=== PATIENT | female | born 1950 | race Caucasian/White ===

== ENCOUNTER → 2019-02-10 | Outpatient (CLI) | payer MEDICARE ==
[~2019-02-10] MED LIST: ALBU90OI INH; ASPI81EC PO; CEPH500 PO; CLARITIN10 MG PO; CRANBERRY PLUS1 EAC1 PO; FURO20 PO; GABA300 PO; GLUCOSAMINE CH PO; HYDR-86; HYDR-86 PO; LISI10 PO; LORA10 PO; LOSA50 PO; LOVA20 PO; Lo-Dose Aspirin81 MG PO; Micro-K8 MEQ PO; NAPR500ERA PO; OMEP20ER PO; Pyridium200 MG PO; SERT100 PO; TRAZ100 PO; VITAMIN D31000 UNIT PO; Ventolin/Prove6.7 GM INH
[2019-02-10 11:00] LABS: Hematocrit 27.8 % (33.0-51.0); Hemoglobin 9.4 g/dL (11.5-16.0); Mean Corpuscular HGB 32.2 pg (26.0-34.0); Mean Corpuscular HGB Conc 33.8 g/dL (31.5-36.5); Mean Corpuscular Volume 95 fL (80-100); Mean Platelet Volume 9.6 fL (9.1-12.4); Platelet Count 128 K/mm3 (150-400); RDW Coefficient Variation 15.4 % (11.7-14.2); RDW Standard Deviation 54.3 fL (35.1-46.3); Red Blood Cell Count 2.92 M/mm3 (3.80-5.20); White Blood Cell Count 6.77 K/mm3 (4.00-11.30)
[2019-02-10 11:11] LABS: Alanine Aminotransfer (ALT/SGP 15 U/L (12-78); Albumin, Blood 3.3 g/dL (3.4-5.0); Albumin/Globulin Ratio 0.9 (0.8-1.8); Alk Phos 75 U/L (40-126); Anion Gap 8 mmol/L (6-16); Aspartate Aminotrans (AST/SGOT 38 U/L (12-37); Bilirubin, Total 0.6 mg/dL (0.1-1.0); Blood Urea Nitrogen 20 mg/dL (8-24); Bun/Creatinine Ratio 20.2 (12.0-20.0); CO2, Blood 28 mmol/L (21-32); Calcium, Blood 9.3 mg/dL (8.5-10.1); Chloride, Blood 103 mmol/L (98-108); Creatinine, Blood 0.99 mg/dL (0.40-1.00); Globulin, Blood 3.6 g/dL (2.2-4.0); Glomerular Filtration Rate 55 (60-); Glucose, Blood 108 mg/dL (70-99); Potassium, Blood 3.7 mmol/L (3.5-5.5); Sodium, Blood 139 mmol/L (136-145); Total Protein, Blood 6.9 g/dL (6.4-8.2)
[2019-02-10 11:12] LABS: Troponin I <0.017 ng/mL (0.000-0.040)
[2019-02-10 12:56] LABS: BAND PERCENT MAN 1 % (0-8); BASOPHILS ABSOLUTE MAN 0.13 K/mm3 (0.00-0.23); BASOPHILS PERCENT MAN 2 % (0-2); EOSINOPHILS ABSOLUTE MAN 0.27 K/mm3 (0.00-0.68); EOSINOPHILS PERCENT MAN 4 % (0-6); LYMPHOCYTES ABSOLUTE MAN 0.88 K/mm3 (0.84-5.20); LYMPHOCYTES PERCENT MAN 13 % (21-46); MONOCYTES ABSOLUTE MAN 1.21 K/mm3 (0.16-1.47); MONOCYTES PERCENT MAN 18 % (4-13); NEUTROPHILS ABSOLUTE MAN 4.26 K/mm3 (1.96-9.15); SEG NEUTROPHILS PERCENT MAN 62 % (41-73); TOTAL CELLS COUNTED 100
[2019-02-10 15:56] LABS: Percent Saturation 67.5 % (15.0-50.0)
[2019-02-11 13:38] LABS: IMMATURE RETIC FRACTION 9.3 % (2.3-16.0); RETIC HGB EQUIVALENT 37.2 pg (28.20-36.60); RETICULOCYTE ABSOLUTE 0.054 M/mm3 (0.0200-0.1100); RETICULOCYTE COUNT PERCENT 1.85 % (0.50-2.50)
== END | disposition home or self-care (01) ==
LOC: LAB EV 10:53 → LAB SHORT 10:53
PROVIDERS: Physician Assistant
DX: R07.9 Chest pain, unspecified (principal); D64.9 Anemia, unspecified
CPT/HCPCS: 80053; 83540; 83550; 83880; 84484; 85025; 85045; 85379

== ENCOUNTER → 2019-02-15 | Outpatient (CLI) | payer MEDICARE ==
[2019-02-19 14:16] LABS: Stool Occult Bld Immuno 1 Negative (NEGATIVE); Stool Occult Bld Immuno 2 Negative (NEGATIVE); Stool Occult Bld Immuno 3 Negative (NEGATIVE)
== END | disposition home or self-care (01) ==
LOC: LAB SHORT 10:30 → LAB 10:30 → LAB FUT 02-15 14:30
PROVIDERS: Nurse Practitioner
DX: D64.9 Anemia, unspecified (principal); R73.9 Hyperglycemia, unspecified
CPT/HCPCS: G0328

== ENCOUNTER 2019-04-03 08:52 | Emergency (ER) | payer MEDICARE ==
[~2019-04-03] VITALS: Ht 167.6 cm; Wt 86.2 kg
[~2019-04-03 08:52] MED LIST changes: -CEPH500 PO; -Pyridium200 MG PO
[2019-04-03 09:22] LABS: Source, Urine Clean Catch
[2019-04-03 09:38] LABS: Appearance, Urine Turbid (Clear); Bilirubin, Urine Neg (Neg); Blood, Urine 5+ (Neg); Color, Urine Yellow (P-Yellow); Glucose Qualitative, Urine Neg (Neg); Ketones, Urine 1+ (Neg); Leukocyte Esterase, Urine 3+ (Neg); Nitrite, Urine Pos (Neg); Protein, Urine 3+ (Neg); Urobilinogen, Urine 1+ (Normal)
[2019-04-03 09:53] LABS: Red Blood Cells, Urine TNTC /hpf (0-2)
[2019-04-03 09:54] LABS: White Blood Cells, Urine 50-100 /hpf (0-5)
[2019-04-03 09:55] LABS: Bacteria Mod /hpf; Squamous Epithelial Cells Not Seen /hpf (Few)
[2019-04-03] MEDS ORDERED: Pyridium200 MG PO (09:58)
[2019-04-03] MEDS ORDERED: CEPH500 PO (09:58)
== END 2019-04-03 10:10 | disposition home or self-care (01) ==
LOC: ER 08:52
PROVIDERS: Emergency Medicine
DX: N39.0 Urinary tract infection, site not specified (principal); I10 Essential (primary) hypertension; J45.909 Unspecified asthma, uncomplicated; Z87.891 Personal history of nicotine dependence; Z88.5 Allergy status to narcotic agent; Z79.899 Other long term (current) drug therapy; Z79.82 Long term (current) use of aspirin
CPT/HCPCS: 81001; 87077; 87086; 87186; 99283

== ENCOUNTER → 2019-09-09 | Outpatient (CLI) | payer MEDICARE ==
[~2019-09-09] MED LIST changes: +CEPH500 PO; +Pyridium200 MG PO
== END | disposition home or self-care (01) ==
LOC: LAB SHORT 13:30 → LAB EV 13:30
DX: N39.0 Urinary tract infection, site not specified (principal)
CPT/HCPCS: 87077; 87086; 87186

== ENCOUNTER 2020-02-28 22:46 | Emergency (ER) | payer MEDICARE ==
[~2020-02-28] VITALS: Ht 162.6 cm; Wt 74.8 kg
[~2020-02-28 22:46] MED LIST changes: +AMLO5 PO; +ASPIR 8181 M1 PO; +Ativan1 MG PO; +BUSP10 PO; +CARB100ER PO; +CRANBERRY CONC1 EAC1 PO; -CRANBERRY PLUS1 EAC1 PO; +CYCL10 PO; +GLUC500 PO; -GLUCOSAMINE CH PO; -HYDR-86 PO; +LORCET 5-325 M1 EACH PO; +LOSARTAN-HCTZ1 EACH PO; -Lo-Dose Aspirin81 MG PO; +MORP20ER PO; +NORCO 7.5-3251 EAC1 PO; +ONDA4ODT SL; +TEMA30 PO; +Triamcinolone A15 G4 TOP
[2020-02-29 00:15] LABS: BASOPHILS ABSOLUTE AUTO 0.02 K/mm3 (0.00-0.23); BASOPHILS PERCENT AUTO 0 % (0-2); EOSINOPHILS ABSOLUTE AUTO 0.03 K/mm3 (0.00-0.68); EOSINOPHILS PERCENT AUTO 0 % (0-6); Hematocrit 28.4 % (33.0-51.0); Hemoglobin 9.8 g/dL (11.5-16.0); Mean Corpuscular HGB 30.2 pg (26.0-34.0); Mean Corpuscular HGB Conc 34.5 g/dL (31.5-36.5); Mean Corpuscular Volume 88 fL (80-100); Mean Platelet Volume 10.3 fL (9.1-12.4); Platelet Count 99 K/mm3 (150-400); RDW Coefficient Variation 13.7 % (11.7-14.2); RDW Standard Deviation 44.3 fL (35.1-46.3); Red Blood Cell Count 3.24 M/mm3 (3.80-5.20); White Blood Cell Count 9.86 K/mm3 (4.00-11.30)
[2020-02-29 00:16] LABS: IMMATURE GRAN ABSOLUTE AUTO 0.06 K/mm3 (0.00-0.10); IMMATURE GRAN PERCENT AUTO 1 % (0-1); LYMPHOCYTES ABSOLUTE AUTO 1.09 K/mm3 (0.84-5.20); LYMPHOCYTES PERCENT AUTO 11 % (21-46); MONOCYTES ABSOLUTE AUTO 2.78 K/mm3 (0.16-1.47); MONOCYTES PERCENT AUTO 28 % (4-13); NEUTROPHILS ABSOLUTE AUTO 5.88 K/mm3 (1.96-9.15); NEUTROPHILS PERCENT AUTO 60 % (41-73)
[2020-02-29 00:36] LABS: Source, Urine Catheter
[2020-02-29 00:38] LABS: Appearance, Urine Clear (Clear); Bilirubin, Urine Neg (Neg); Blood, Urine 3+ (Neg); Color, Urine Amber (P-Yellow); Glucose Qualitative, Urine Neg (Neg); Ketones, Urine 1+ (Neg); Leukocyte Esterase, Urine 2+ (Neg); Nitrite, Urine Neg (Neg); Protein, Urine 1+ (Neg); Urobilinogen, Urine 1+ (Normal)
[2020-02-29 00:43] LABS: Alanine Aminotransfer (ALT/SGP 21 U/L (12-78); Albumin, Blood 2.2 g/dL (3.4-5.0); Albumin/Globulin Ratio 0.6 (0.8-1.8); Alk Phos 63 U/L (50-136); Anion Gap 8 mmol/L (6-16); Aspartate Aminotrans (AST/SGOT 110 U/L (12-37); Bilirubin, Total 0.7 mg/dL (0.1-1.0); Blood Urea Nitrogen 15 mg/dL (8-24); Bun/Creatinine Ratio 16.3 (12.0-20.0); CO2, Blood 25 mmol/L (21-32); Calcium, Blood 7.9 mg/dL (8.5-10.1); Chloride, Blood 97 mmol/L (98-108); Creatinine, Blood 0.92 mg/dL (0.40-1.00); Globulin, Blood 3.7 g/dL (2.2-4.0); Glomerular Filtration Rate >60 (60-); Glucose, Blood 105 mg/dL (70-99); Potassium, Blood 3.5 mmol/L (3.5-5.5); Sodium, Blood 130 mmol/L (136-145); Thyroid Stimulating Hormone 0.739 uIU/mL (0.360-4.800); Total Protein, Blood 5.9 g/dL (6.4-8.2); Troponin I <0.015 ng/mL (0.000-0.040)
[2020-02-29 00:46] LABS: Bacteria Many /hpf; Red Blood Cells, Urine 0-2 /hpf (0-2); Squamous Epithelial Cells Not Seen /hpf (Few); White Blood Cells, Urine 50-100 /hpf (0-5)
[2020-02-29] MEDS ORDERED: Ativan1 MG PO (01:01)
[2020-02-29] MEDS ORDERED: KEFLEX500 MG PO (01:58)
[2020-02-29] MEDS ORDERED: Diflucan100 MG PO (02:11)
== END 2020-02-29 02:11 | disposition home or self-care (01) ==
LOC: ER 22:46
PROVIDERS: Emergency Medicine
DX: N39.0 Urinary tract infection, site not specified (principal); D64.9 Anemia, unspecified; R53.1 Weakness; Z88.5 Allergy status to narcotic agent; Z88.8 Allergy status to other drugs, medicaments and biological substances; Z79.82 Long term (current) use of aspirin; Z79.899 Other long term (current) drug therapy; I10 Essential (primary) hypertension; E78.5 Hyperlipidemia, unspecified; F32.9 Major depressive disorder, single episode, unspecified; J45.909 Unspecified asthma, uncomplicated; Z85.3 Personal history of malignant neoplasm of breast; Z87.891 Personal history of nicotine dependence
CPT/HCPCS: 80053; 81001; 83690; 84443; 84484; 85025; 87077; 87086; 87186; 93005; 93010; 96365; 99284-25; J0696; J7030

== ENCOUNTER 2020-03-03 21:16 | Inpatient (IN) | payer MEDICARE ==
[~2020-03-03] VITALS: Ht 165.1 cm; Wt 81.2 kg
[~2020-03-03 21:16] MED LIST changes: +Diflucan100 MG PO; +KEFLEX500 MG PO
[2020-03-03] MEDS ORDERED: RANI150EL PO (21:44)
[2020-03-03] MEDS ORDERED: LOSARTAN-HCTZ1 EACH PO (21:47)
[2020-03-03 21:48] LABS: BASOPHILS ABSOLUTE AUTO 0.03 K/mm3 (0.00-0.23); BASOPHILS PERCENT AUTO 0 % (0-2); EOSINOPHILS ABSOLUTE AUTO 0.02 K/mm3 (0.00-0.68); EOSINOPHILS PERCENT AUTO 0 % (0-6); Hematocrit 27.6 % (33.0-51.0); Hemoglobin 9.5 g/dL (11.5-16.0); Mean Corpuscular HGB 30.4 pg (26.0-34.0); Mean Corpuscular HGB Conc 34.4 g/dL (31.5-36.5); Mean Corpuscular Volume 88 fL (80-100); Mean Platelet Volume 9.3 fL (9.1-12.4); Platelet Count 113 K/mm3 (150-400); RDW Coefficient Variation 14.2 % (11.7-14.2); RDW Standard Deviation 45.1 fL (35.1-46.3); Red Blood Cell Count 3.13 M/mm3 (3.80-5.20); White Blood Cell Count 8.98 K/mm3 (4.00-11.30)
[2020-03-03 21:53] LABS: IMMATURE GRAN ABSOLUTE AUTO 0.09 K/mm3 (0.00-0.10); IMMATURE GRAN PERCENT AUTO 1 % (0-1); LYMPHOCYTES ABSOLUTE AUTO 1.35 K/mm3 (0.84-5.20); LYMPHOCYTES PERCENT AUTO 15 % (21-46); MONOCYTES ABSOLUTE AUTO 1.87 K/mm3 (0.16-1.47); MONOCYTES PERCENT AUTO 21 % (4-13); NEUTROPHILS ABSOLUTE AUTO 5.62 K/mm3 (1.96-9.15); NEUTROPHILS PERCENT AUTO 63 % (41-73)
[2020-03-03 21:59] LABS: Alanine Aminotransfer (ALT/SGP 24 U/L (12-78); Albumin, Blood 2.3 g/dL (3.4-5.0); Albumin/Globulin Ratio 0.6 (0.8-1.8); Alk Phos 80 U/L (50-136); Anion Gap 7 mmol/L (6-16); Aspartate Aminotrans (AST/SGOT 128 U/L (12-37); Bilirubin, Total 0.6 mg/dL (0.1-1.0); Blood Urea Nitrogen 13 mg/dL (8-24); Bun/Creatinine Ratio 14.4 (12.0-20.0); CO2, Blood 26 mmol/L (21-32); Calcium, Blood 8.7 mg/dL (8.5-10.1); Chloride, Blood 96 mmol/L (98-108); Globulin, Blood 3.7 g/dL (2.2-4.0); Glomerular Filtration Rate >60 (60-); Glucose, Blood 106 mg/dL (70-99); Potassium, Blood 4.5 mmol/L (3.5-5.5); Sodium, Blood 129 mmol/L (136-145)
[2020-03-03 22:00] LABS: International Normalized Ratio 1.22; Prothrombin Time Results 12.9 Sec (9.7-11.5)
[2020-03-03 22:45] LABS: Source, Urine Catheter
[2020-03-03 22:49] LABS: Bilirubin, Urine Neg (Neg); Blood, Urine 1+ (Neg); Glucose Qualitative, Urine Neg (Neg); Ketones, Urine 1+ (Neg); Leukocyte Esterase, Urine Neg (Neg); Nitrite, Urine Neg (Neg); Protein, Urine Neg (Neg); Specific Gravity, Urine 1.005 (1.003-1.022); Urobilinogen, Urine NORM (Normal)
[2020-03-03 22:50] LABS: Appearance, Urine Clear (Clear); Color, Urine Yellow (P-Yellow)
[2020-03-03 22:56] LABS: Bacteria Few /hpf; Red Blood Cells, Urine 0-2 /hpf (0-2); Squamous Epithelial Cells Few /hpf (Few); White Blood Cells, Urine 0-2 /hpf (0-5)
[2020-03-04 00:03] LABS: Ethanol (Alcohol), Blood, Med <3 mg/dL
[2020-03-04 00:09] LABS: U Amphetamine Screen Not Detected; U Barbituate Screen Not Detected; U Benzodiazapine Screen Not Detected; U Buprenorphine Screen Not Detected; U Cannabinoids Screen Not Detected; U Cocaine Screen Not Detected; U Methadone Screen Not Detected; U Methamphetamine Screen Not Detected; U Opiates Screen DETECTED; U Oxycodone Screen Not Detected; U Phencyclidine Screen Not Detected; U Propoxyphene Screen Not Detected
[2020-03-04 09:45] LABS: Hematocrit 23.4 % (33.0-51.0); Mean Corpuscular HGB 30.5 pg (26.0-34.0); Mean Corpuscular HGB Conc 34.2 g/dL (31.5-36.5); Mean Corpuscular Volume 89 fL (80-100); Mean Platelet Volume 9.6 fL (9.1-12.4); Platelet Count 97 K/mm3 (150-400); RDW Coefficient Variation 14.4 % (11.7-14.2); RDW Standard Deviation 46.5 fL (35.1-46.3); Red Blood Cell Count 2.62 M/mm3 (3.80-5.20)
[2020-03-04 10:02] LABS: Alanine Aminotransfer (ALT/SGP 17 U/L (12-78); Albumin, Blood 1.9 g/dL (3.4-5.0); Albumin/Globulin Ratio 0.5 (0.8-1.8); Alk Phos 66 U/L (50-136); Anion Gap 5 mmol/L (6-16); Aspartate Aminotrans (AST/SGOT 113 U/L (12-37); Bilirubin, Total 0.6 mg/dL (0.1-1.0); Blood Urea Nitrogen 13 mg/dL (8-24); Bun/Creatinine Ratio 16.7 (12.0-20.0); CO2, Blood 27 mmol/L (21-32); Calcium, Blood 8.2 mg/dL (8.5-10.1); Chloride, Blood 97 mmol/L (98-108); Creatinine, Blood 0.78 mg/dL (0.40-1.00); Globulin, Blood 3.6 g/dL (2.2-4.0); Glomerular Filtration Rate >60 (60-); Glucose, Blood 91 mg/dL (70-99); Sodium, Blood 129 mmol/L (136-145); Total Protein, Blood 5.5 g/dL (6.4-8.2)
[2020-03-04 10:10] LABS: BASOPHILS ABSOLUTE MAN 0.07 K/mm3 (0.00-0.23); BASOPHILS PERCENT MAN 1 % (0-2); EOSINOPHILS ABSOLUTE MAN 0.07 K/mm3 (0.00-0.68); EOSINOPHILS PERCENT MAN 1 % (0-6); LYMPHOCYTES PERCENT MAN 11 % (21-46); MONOCYTES ABSOLUTE MAN 1.53 K/mm3 (0.16-1.47); MONOCYTES PERCENT MAN 21 % (4-13); NEUTROPHILS ABSOLUTE MAN 4.81 K/mm3 (1.96-9.15); SEG NEUTROPHILS PERCENT MAN 66 % (41-73); TOTAL CELLS COUNTED 100
--- NOTE | 2020-03-04 17:42 | NUR ---
PT IS A/OX3, PLEASANT AND COOPERATIVE, THE PT APPEARS TO BE BREATHING EASILY AT REST ON RA, THE PT WAS MEDICATED FOR COCCYX PAIN X2 SO FAR THIS SHIFT, AND NAUSEA X1, PT REPORTED THAT SHE WAS UNABLE TO GET OUT OF BED UNASSISTED, PT. WAS ORDERED FOR THE PT THE PT IS ON A 1.5L/DAY FLUID RESTRICTION AND HAS COMPLIED WITH THAT, OTS VISITED AT THE BEDSIDE TODAY, CALL LIGHT IN REACH, NO OTHER CHANGES NOTICED THIS SHIFT
--- NOTE | 2020-03-04 19:32 | NUR ---
AWAKE, REPOSITIONED FOR COMFORT. HAYNES DRAINING. CALL LIGHT IN REACH. RAILS UP X 3
--- NOTE | 2020-03-04 23:49 | NUR ---
INTERMITENT RESTLESSNESS. CALLING OUT A FEW TIMES FOR REPOSITIONING, THEN ASKED FOR A MED FOR ANXIETY. TRAZODONE ADMINISTERED PER MD ORDERS FOR SLEEP. CONTACT ISOLATION CONTINUES. IVY STEWART. CALL LIGHT IN REACH.
[2020-03-05 05:01] LABS: BASOPHILS ABSOLUTE AUTO 0.03 K/mm3 (0.00-0.23); BASOPHILS PERCENT AUTO 0 % (0-2); EOSINOPHILS ABSOLUTE AUTO 0.02 K/mm3 (0.00-0.68); EOSINOPHILS PERCENT AUTO 0 % (0-6); Hematocrit 25.2 % (33.0-51.0); Hemoglobin 8.7 g/dL (11.5-16.0); Mean Corpuscular HGB 30.7 pg (26.0-34.0); Mean Corpuscular HGB Conc 34.5 g/dL (31.5-36.5); Mean Corpuscular Volume 89 fL (80-100); Mean Platelet Volume 9.2 fL (9.1-12.4); Platelet Count 111 K/mm3 (150-400); RDW Coefficient Variation 14.3 % (11.7-14.2); RDW Standard Deviation 45.9 fL (35.1-46.3); Red Blood Cell Count 2.83 M/mm3 (3.80-5.20)
[2020-03-05 05:19] LABS: IMMATURE GRAN ABSOLUTE AUTO 0.11 K/mm3 (0.00-0.10); IMMATURE GRAN PERCENT AUTO 1 % (0-1); LYMPHOCYTES ABSOLUTE AUTO 1.23 K/mm3 (0.84-5.20); LYMPHOCYTES PERCENT AUTO 15 % (21-46); MONOCYTES ABSOLUTE AUTO 2.04 K/mm3 (0.16-1.47); MONOCYTES PERCENT AUTO 25 % (4-13); NEUTROPHILS ABSOLUTE AUTO 4.77 K/mm3 (1.96-9.15); NEUTROPHILS PERCENT AUTO 58 % (41-73)
[2020-03-05 05:24] LABS: Alanine Aminotransfer (ALT/SGP 22 U/L (12-78); Albumin, Blood 1.9 g/dL (3.4-5.0); Albumin/Globulin Ratio 0.5 (0.8-1.8); Alk Phos 75 U/L (50-136); Anion Gap 7 mmol/L (6-16); Aspartate Aminotrans (AST/SGOT 123 U/L (12-37); Bilirubin, Total 0.5 mg/dL (0.1-1.0); Blood Urea Nitrogen 14 mg/dL (8-24); Bun/Creatinine Ratio 16.1 (12.0-20.0); CO2, Blood 25 mmol/L (21-32); Chloride, Blood 100 mmol/L (98-108); Creatinine, Blood 0.87 mg/dL (0.40-1.00); Globulin, Blood 3.6 g/dL (2.2-4.0); Glomerular Filtration Rate >60 (60-); Glucose, Blood 111 mg/dL (70-99); Magnesium, Blood 1.9 mg/dL (1.6-2.4); Potassium, Blood 3.9 mmol/L (3.5-5.5); Sodium, Blood 132 mmol/L (136-145); Total Protein, Blood 5.5 g/dL (6.4-8.2)
--- NOTE | 2020-03-05 05:32 | NUR ---
SHIFT SUMMARY WAS AWAKE AT INTERVALS, MAKING CONFUSED STATEMENTS, SUCH ASKING NURSE TO CO SIGN THE DOCUMENTS ON HER OVERBED TABLE - BUT NO DOCUMENTS WERE THERE. RECEIVED ANALGESICS FOR COMPLAINTS OF PAIN AND A SLEEP MED BUT STILL RESTLESS WHEN BENDING HER ARM, THE IV WOULD SOUND AND SHE WOULD TRY TO GET OUT OF BED. THIS CONTINUED SEVERAL TIMES, UNTIL IV MACHINE WAS TURNED OFF, AND PT APPEARED TO SLEEP WITHOUT NOTED DISTRESS AFTERWARDS. CONTACT PRECAUTIONS CONTINUE. CALL LIGHT IN REACH.
--- NOTE | 2020-03-05 06:42 | NUR ---
REPORT RECIEVED FROM MIGUE ROSADO AND PT T/F VIA BED FROM ROOM 359 TO ROOM 344.
--- NOTE | 2020-03-05 17:24 | NUR ---
SHIFT SUMMARY PATIENT AWOKE THIS MORNING A&OX4. REVIEWED MORNING MEDS AND SHE STATED THAT SHE TAKES MORPHINE TID. EXPLAINED TO PT THAT IT IS LISTED AN ALLERGY. PT STATED THAT THE DELIRIUM WAS SECONDARY TO WITHRAWAL FROM MORPHINE. SHE AND REQUESTED TO SPEAK WITH MD, WHO CAME AND GAVE ORDERS FOR PO MORPHINE, PER HOME MED REC, SHE TOLERATES AT HOME AND PT'S PREVIOUS REACTION WAS TO IV MORPHINE. UP TO CHAIR WITH MEALS. CALLS APPROPRIATLY. SBA WITH [facility]. ESTEFANY. D/C PLANNING IN PLACE. PT RECS SNF, AND SHE WILL NEED IV [facility] OUTPT, PATIENT IS AGREEABLE. CONTACT PRECAUTIONS IN PLACE. CALL LIGHT IN REACH. PAIN CONTROLLED WITH ORDERS PER EMAR.
--- NOTE | 2020-03-06 04:05 | NUR ---
SUMMARY: PT A/OX4, PLEASANT AND COOPERATIVE W/CARE AND CALLING APPROPRIATELY FOR ASSIST. SCHEDULED MS GERALD RECIEVED FOR TOLERABLE CONTROL OF CHRONIC TAILBONE PAIN. SHE WAS UP TO CHAIR PER REQUEST W/SBA FOR A BRIEF PERIOD THEN RETURNED TO BED. HAYNES REMAINS PATENT/DRAINING. 1500 FREE WATER FR IN PLACE AND IV SL BETWEEN IV ABX. PHYS TX RECOMMENDS SNF AND PT HAD PREVIOUSLY BEEN AGREEABLE BUT TONIGHT SHE'S REPORTED ANXIETY OVER BEING APART FROM STATING "I CAN'T DO IT, I DON'T WANT TO AND I NEED TO GO HOME WITH HIM". SHE WILL NEED OUTPT IV ABX BUT WILL PASS INFO ON TO DAY RN. NO ACUTE CHANGES, VSS AND AFEBRILE. WCTM AND REPORT TO DAY RN.
[2020-03-06 05:54] LABS: Hematocrit 24.3 % (33.0-51.0); Hemoglobin 8.5 g/dL (11.5-16.0); Mean Corpuscular HGB 30.7 pg (26.0-34.0); Mean Corpuscular Volume 88 fL (80-100); Mean Platelet Volume 9.4 fL (9.1-12.4); Platelet Count 115 K/mm3 (150-400); RDW Coefficient Variation 14.4 % (11.7-14.2); RDW Standard Deviation 46.4 fL (35.1-46.3); Red Blood Cell Count 2.77 M/mm3 (3.80-5.20); White Blood Cell Count 8.45 K/mm3 (4.00-11.30)
[2020-03-06 06:11] LABS: Alanine Aminotransfer (ALT/SGP 19 U/L (12-78); Albumin, Blood 1.9 g/dL (3.4-5.0); Albumin/Globulin Ratio 0.5 (0.8-1.8); Alk Phos 76 U/L (50-136); Anion Gap 7 mmol/L (6-16); Aspartate Aminotrans (AST/SGOT 105 U/L (12-37); Bilirubin, Total 0.6 mg/dL (0.1-1.0); Blood Urea Nitrogen 15 mg/dL (8-24); Bun/Creatinine Ratio 18.3 (12.0-20.0); CO2, Blood 25 mmol/L (21-32); Calcium, Blood 8.3 mg/dL (8.5-10.1); Chloride, Blood 97 mmol/L (98-108); Creatinine, Blood 0.82 mg/dL (0.40-1.00); Globulin, Blood 3.8 g/dL (2.2-4.0); Glomerular Filtration Rate >60 (60-); Glucose, Blood 104 mg/dL (70-99); Magnesium, Blood 1.9 mg/dL (1.6-2.4); Phosphorus, Blood 2.2 mg/dL (2.5-4.9); Potassium, Blood 4.3 mmol/L (3.5-5.5); Sodium, Blood 129 mmol/L (136-145); Total Protein, Blood 5.7 g/dL (6.4-8.2)
[2020-03-06 06:23] LABS: BASOPHILS ABSOLUTE MAN 0.08 K/mm3 (0.00-0.23); BASOPHILS PERCENT MAN 1 % (0-2); EOSINOPHILS ABSOLUTE MAN 0.16 K/mm3 (0.00-0.68); EOSINOPHILS PERCENT MAN 2 % (0-6); LYMPHOCYTES ABSOLUTE MAN 1.09 K/mm3 (0.84-5.20); LYMPHOCYTES PERCENT MAN 13 % (21-46); METAMYELOCYTE ABSOLUTE MAN 0.08 K/mm3 (0.00-0.00); METAMYELOCYTE PERCENT MAN 1 % (0-0); MONOCYTES ABSOLUTE MAN 1.85 K/mm3 (0.16-1.47); MONOCYTES PERCENT MAN 22 % (4-13); NEUTROPHILS ABSOLUTE MAN 5.15 K/mm3 (1.96-9.15); SEG NEUTROPHILS PERCENT MAN 61 % (41-73); TOTAL CELLS COUNTED 100
--- NOTE | 2020-03-06 13:31 | NUR ---
ORDER TO D/C HAYNES. EXPLAINED PROCEDURE TO PATIENT, WHO VERBALIZED UNDERSTANDING. REMOVED 10 ML STERILE WATER FROM BALLOON AND REMOVED CATHETER WITHOUT INCIDENT. EDUCATED PATIENT THAT SHE NEEDS TO VOID WITHIN 6 HOURS, AND SHE VERBALIZED UNDERSTANDING. TOLERATED WELL.
--- NOTE | 2020-03-06 18:18 | NUR ---
SHIFT SUMMARY: NO ACUTE EVENTS THIS SHIFT. C/O CHRONIC ACHING PAIN IN TAILBONE; MEDICATED PER EMAR WITH ADEQUATE RELIEF, STATED SHE IS COMFORTABLE. SINUS RHYTHM ON TELEMETRY PRIOR TO D/C. GETTING UP TO BSC WITH 1 PERSON ASSIST. IS COMPLIANT WITH FW FLUID RESTRICTION. APPETITE OK. WAS HAVING INTERMITTENT ANXIETY REGARDING D/C PLAN, BUT IS NOW DOING BETTER AFTER FINDING OUT SHE WILL GET TO GO HOME INSTEAD OF SNF.
--- NOTE | 2020-03-07 00:49 | NUR ---
Pt very sleepy at beginning of shift during shift report. Pt was assisted later about 2119 to [facility]. Pt didnt seem to understand what to do to get from the bed to the commode. Moderate assist. Attends were wet and changed. Pt knew her name, she knew she was in a hospital but when asked what city she said "[facility]". She knew javid was presidient but unable to give month or year, just mumbles. 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 no facial droop noted. Will continue to monitor.
--- NOTE | 2020-03-07 04:46 | NUR ---
Rn summary: Pt a little more alert and more directable this am. Pt up to BSC, moving better. Pt urine is dk yellow, has been voiding 100cc q2 hours. Pt resting in bed with covers off. C/O being hot, temp 98.9. Calls out for assist, sometimes uses call light. Has rested only fair.
[2020-03-07 05:27] LABS: Hemoglobin 8.7 g/dL (11.5-16.0); Mean Corpuscular HGB 30.4 pg (26.0-34.0); Mean Corpuscular HGB Conc 34.8 g/dL (31.5-36.5); Mean Corpuscular Volume 87 fL (80-100); Mean Platelet Volume 9.6 fL (9.1-12.4); Platelet Count 112 K/mm3 (150-400); RDW Coefficient Variation 14.4 % (11.7-14.2); RDW Standard Deviation 45.9 fL (35.1-46.3); Red Blood Cell Count 2.86 M/mm3 (3.80-5.20); White Blood Cell Count 9.41 K/mm3 (4.00-11.30)
[2020-03-07 05:39] LABS: Anion Gap 6 mmol/L (6-16); Blood Urea Nitrogen 20 mg/dL (8-24); CO2, Blood 26 mmol/L (21-32); Calcium, Blood 8.1 mg/dL (8.5-10.1); Chloride, Blood 96 mmol/L (98-108); Creatinine, Blood 0.95 mg/dL (0.40-1.00); Glomerular Filtration Rate >60 (60-); Glucose, Blood 106 mg/dL (70-99); Potassium, Blood 4.3 mmol/L (3.5-5.5); Sodium, Blood 128 mmol/L (136-145)
[2020-03-07 06:24] LABS: BASOPHILS PERCENT MAN 0 % (0-2); EOSINOPHILS ABSOLUTE MAN 0.09 K/mm3 (0.00-0.68); EOSINOPHILS PERCENT MAN 1 % (0-6); LYMPHOCYTES ABSOLUTE MAN 1.03 K/mm3 (0.84-5.20); LYMPHOCYTES PERCENT MAN 11 % (21-46); MONOCYTES ABSOLUTE MAN 1.97 K/mm3 (0.16-1.47); MONOCYTES PERCENT MAN 21 % (4-13); SEG NEUTROPHILS PERCENT MAN 67 % (41-73); TOTAL CELLS COUNTED 100
[2020-03-07 10:24] LABS: Uric Acid, Blood 4.6 mg/dL (2.6-6.0)
--- NOTE | 2020-03-07 19:46 | NUR ---
SHIFT SUMMARY: PT SLEPT MOST OF THIS SHIFT, AROUSES TO SPEECH AND RESPONDS APPROPRIATELY TO QUESTIONS AND CAN MAKE HER NEEDS KNOWN. C/O CHRONIC PAIN IN TAILBONE/BACK; MEDICATED PER EMAR WITH ADEQUATE RELIEF. SBA TO BSC; VOIDS SMALL AMOUNTS OFTEN. APPETITE OK. IS COMPLIANT WITH FREE WATER RESTRICTION. WORKED WITH PT THIS AFTERNOON.
[2020-03-08 05:06] LABS: Hematocrit 24.7 % (33.0-51.0); Hemoglobin 8.6 g/dL (11.5-16.0); Mean Corpuscular HGB 30.3 pg (26.0-34.0); Mean Corpuscular HGB Conc 34.8 g/dL (31.5-36.5); Mean Corpuscular Volume 87 fL (80-100); Mean Platelet Volume 9.8 fL (9.1-12.4); Platelet Count 111 K/mm3 (150-400); RDW Coefficient Variation 14.5 % (11.7-14.2); RDW Standard Deviation 45.8 fL (35.1-46.3); Red Blood Cell Count 2.84 M/mm3 (3.80-5.20)
[2020-03-08 05:31] LABS: Albumin, Blood 1.8 g/dL (3.4-5.0); Anion Gap 6 mmol/L (6-16); Blood Urea Nitrogen 21 mg/dL (8-24); Bun/Creatinine Ratio 23.8 (12.0-20.0); CO2, Blood 26 mmol/L (21-32); Calcium, Blood 8.2 mg/dL (8.5-10.1); Chloride, Blood 96 mmol/L (98-108); Creatinine, Blood 0.88 mg/dL (0.40-1.00); Glomerular Filtration Rate >60 (60-); Glucose, Blood 107 mg/dL (70-99); Magnesium, Blood 2.1 mg/dL (1.6-2.4); Phosphorus, Blood 2.2 mg/dL (2.5-4.9); Potassium, Blood 4.4 mmol/L (3.5-5.5); Sodium, Blood 128 mmol/L (136-145)
[2020-03-08 05:56] LABS: BASOPHILS PERCENT MAN 0 % (0-2); EOSINOPHILS ABSOLUTE MAN 0.08 K/mm3 (0.00-0.68); EOSINOPHILS PERCENT MAN 1 % (0-6); LYMPHOCYTES ABSOLUTE MAN 0.79 K/mm3 (0.84-5.20); LYMPHOCYTES PERCENT MAN 9 % (21-46); MONOCYTES ABSOLUTE MAN 2.02 K/mm3 (0.16-1.47); MONOCYTES PERCENT MAN 23 % (4-13); NEUTROPHILS ABSOLUTE MAN 5.89 K/mm3 (1.96-9.15); SEG NEUTROPHILS PERCENT MAN 67 % (41-73); TOTAL CELLS COUNTED 100
--- NOTE | 2020-03-08 06:04 | NUR ---
SHIFT SUMMARY: VSS. AFEB. AAOX3 AT START OF SHIFT. INCREASED CONFUSION THROUGH THE NIGHT. FORGETS HOW TO USE CALL BUTTON AND BED CONTROL, DIDN'T UNDERSTAND HOW TO TURN OFF HER OWN PHONE. MAKES NEEDS KNOWN. CONT TO HAVE FREQUENCY AND URGENCY TO VOID. T/F TO BSC W/ 1 ASSIST. NO ACUTE CHANGES TONIGHT. BED ALARM ON. WILL CONT TO MONITOR.
--- NOTE | 2020-03-08 17:53 | NUR ---
SHIFT SUMMARY- PT IS A/O, PLESANT AND COOPERATIVE. SHE IS GETTING UP FREQUENTLY TO URINATE. SHE IS USING THE BSC AND IS FAIRLY STRONG IN TRANSFERING. SHE HAS A POOR APPETITE. SHE IS RECIEVING IV ABX.
--- NOTE | 2020-03-09 05:01 | NUR ---
SHIFT SUMMARY: VSS. AFEB. AAOX2-3. INCREASINGLY CONFUSED TONIGHT. YELLS OUT "HURRY, HURRY, PLEASE" WHEN ASKED WHAT PT NEEDS SHE WANTED A WET TISSUE FOR HER NOSE BUT STATES SHE COULD NOT EXPLAIN WHY WE NEED TO HURRY OR WHAT WAS WRONG W/ HER NOSE. IN THE MIDDLE OF THE NIGHT, PT HAD DIFFICULTY W/ THE PROCES OF VOIDING. NEEDED VERBAL CUES TO STAND, PIVOT, PULL DOWN ATTEND, ETC. SHE STATED, "I CAN'T PEE, I'M FACING THE WRONG DIRECTION". ENCOURAGE PT THAT THE DIRECTION SHE FACED WAS CORRECT. THIS MORNING HER INTERACTION ARE BECOMING LESS CONFUSED AND ANXIOUS. CONT W/URGENCY AND FREQUENCY TO VOID. IV ABT INFUSED PER ORDERS. PT EXCEEDED FLUID RESTRICTION BY 150CC. BED LOW, BED ALARM ON, CALL BUTTON REACH. WILL CONT TO MONITOR.
[2020-03-09 05:26] LABS: BASOPHILS ABSOLUTE AUTO 0.03 K/mm3 (0.00-0.23); BASOPHILS PERCENT AUTO 0 % (0-2); EOSINOPHILS ABSOLUTE AUTO 0.05 K/mm3 (0.00-0.68); EOSINOPHILS PERCENT AUTO 0 % (0-6); Hematocrit 25.7 % (33.0-51.0); Mean Corpuscular HGB 30.3 pg (26.0-34.0); Mean Corpuscular Volume 87 fL (80-100); Mean Platelet Volume 9.8 fL (9.1-12.4); Platelet Count 109 K/mm3 (150-400); RDW Coefficient Variation 14.6 % (11.7-14.2); Red Blood Cell Count 2.97 M/mm3 (3.80-5.20); White Blood Cell Count 11.33 K/mm3 (4.00-11.30)
[2020-03-09 05:32] LABS: IMMATURE GRAN ABSOLUTE AUTO 0.08 K/mm3 (0.00-0.10); IMMATURE GRAN PERCENT AUTO 1 % (0-1); LYMPHOCYTES ABSOLUTE AUTO 1.67 K/mm3 (0.84-5.20); LYMPHOCYTES PERCENT AUTO 15 % (21-46); MONOCYTES ABSOLUTE AUTO 3.18 K/mm3 (0.16-1.47); MONOCYTES PERCENT AUTO 28 % (4-13); NEUTROPHILS ABSOLUTE AUTO 6.32 K/mm3 (1.96-9.15); NEUTROPHILS PERCENT AUTO 56 % (41-73)
[2020-03-09 05:48] LABS: Anion Gap 6 mmol/L (6-16); Blood Urea Nitrogen 22 mg/dL (8-24); Bun/Creatinine Ratio 26.2 (12.0-20.0); CO2, Blood 25 mmol/L (21-32); Calcium, Blood 8.3 mg/dL (8.5-10.1); Chloride, Blood 96 mmol/L (98-108); Creatinine, Blood 0.84 mg/dL (0.40-1.00); Glomerular Filtration Rate >60 (60-); Glucose, Blood 110 mg/dL (70-99); Potassium, Blood 4.3 mmol/L (3.5-5.5); Sodium, Blood 127 mmol/L (136-145)
--- NOTE | 2020-03-09 06:51 | NUR ---
DR. DUGGAN IN TO SEE PT THIS AM. NA+ 127. INSTRUCTED TO KEEP STRICT <1L FLUID RESTRICTION. GIVE TODAYS DOSE OF LASIX VIA IV. ADD 1GM SALT TABLET W/BREAKFAST.
--- NOTE | 2020-03-09 17:26 | NUR ---
SHIFT SUMMARY- PT IS ALERT, PLESANT AND COOPERATIVE. SHE HAS SOME INTERMITENT CONFUSION. PT WORKED WITH PHYSICAL THERAPY TODAY AND TOLERATED WELL. SHE IS VOIDING FREQUENTLY, NO BM THIS SHIFT. HER BROUGHT HER FOOD THIS AFTERNOON AND SHE ATE WELL. PT SPOKE WITH [employer] ARCHITECT ABOUT SNF, PT DOES NOT WANT TO GO TO SNF, SHE DISCUSSED USING A HOME CARE PROVIDER, PT AGREED TO THAT, WAS GIVEN INFORMATION FROM [employer]CH[employer].
--- NOTE | 2020-03-10 03:35 | NUR ---
SHIFT SUMMARY PATIENT HAD NO ACUTE CHANGES OBSERVED. AXOX 2-3 WITH CONFUSION AT TIMES. ONE ASSIST TO BSC WITH FWW. URINARY URGENCY. VSS/AFEBRILE. PIV REMAINS INTACT. IV ABX INFUSED. FLUID RESTRICTION 1,000 mL. SCHEDULE MORPHINE SULFATE 15 MG FOR CHRONIC BACK/LEG PAIN. NAUSEOUS X ONE RESOLVED QUICKLY. PATIENT ANXIOUS T/O SHIFT. HALF TAB OF NORCO GIVEN X ONE FOR CHRONIC LEG PAIN PRN. PATIENT ABLE TO SLEEP. CALL LIGHT IN REACH. BED IN LOWEST POSITION. WILL CONTINUE TO MONITOR UNTIL DAY SHIFT NURSE ASSUMES CARE.
[2020-03-10 05:31] LABS: Hematocrit 24.3 % (33.0-51.0); Hemoglobin 8.4 g/dL (11.5-16.0)
[2020-03-10 05:54] LABS: Albumin, Blood 1.8 g/dL (3.4-5.0); Anion Gap 6 mmol/L (6-16); Blood Urea Nitrogen 25 mg/dL (8-24); Bun/Creatinine Ratio 29.8 (12.0-20.0); CO2, Blood 25 mmol/L (21-32); Calcium, Blood 8.2 mg/dL (8.5-10.1); Chloride, Blood 97 mmol/L (98-108); Creatinine, Blood 0.84 mg/dL (0.40-1.00); Glomerular Filtration Rate >60 (60-); Glucose, Blood 147 mg/dL (70-99); Magnesium, Blood 2.2 mg/dL (1.6-2.4); Phosphorus, Blood 2.1 mg/dL (2.5-4.9); Potassium, Blood 4.3 mmol/L (3.5-5.5); Sodium, Blood 128 mmol/L (136-145)
--- NOTE | 2020-03-10 16:01 | NUR ---
SHIFT SUMMARY PT SLEEPING, RESTING QUIETLY AT START OF SHIFT. WOKE EASILY FOR CARE. PT ADMITTED FOR SEPSIS R/T UTI, RECEIVING IV ABX. LOW SODIUM LEVEL THIS AM; RECEIVED IV NA+ PHOS AND PO SODIUM TABS. DR ENCINAS IN TO SEE PT, DISCUSSED D/C OPTIONS WITH PT. PT NOT WANTING TO GO TO SNF. LOW SODIUM LEVEL DISCUSSED WITH PT POSSIBLE SIADH, MEDICATION RELATED WELL; MEDICATIONS ADJUSTED. SEE EMAR. PT'S IN THIS AM FOR A WHILE, GOING HOME BEFORE DR ENCINAS IN TO SEE PT. MEDS ADMINISTERED WHOLE IN APPLESAUCE, PER PT REQUEST. PT CALLS FOR ASSIST TO BSC TO VOID; URINE DRK, CONCENTRATED. PT ON 1L F/R D/T LOW SODIUM LEVEL. 1P ASSIST TO STAND AND PIVOT. PT A&O X2. A LITTLE MORE CONFUSED IN AFTERNOON THAN IN AM. RESTING QUIETLY AT THIS TIME. CALL LT IN REACH.
--- NOTE | 2020-03-11 03:28 | NUR ---
SHIFT SUMMARY PATIENT HAD NO ACUTE CHANGES OBSERVED. AXOX 2-3 WITH CONFUSION AT TIMES. PATIENT CONFUSED 3 A.M. LAST TWO NOC SHIFTS AND REORIENTED TO TIME AND PLACE. ONE ASSIST TO BSC WITH FWW. TAKES MEDICATION WHOLE WITH APPLESAUCE. PIV REMAINS INTACT. IV ABX INFUSED. FLUID RESTRICTION 1,000 mL. RECEIVED SCHEDULE MORPHINE SULFATE 15 MG. FLEXERIL GIVEN X ONE FOR MUSCLE SPASM. VSS/AFEBRILE. DENIES SOB AND N/V. DR DUGGAN IN TO SEE PATIENT MIDNIGHT. CALL LIGHT IN REACH. BED IN LOWEST POSITION AND ALARM ACTIVATED. WILL CONTINUE TO MONITOR UNTIL DAY SHIFT NURSE ASSUMES CARE.
[2020-03-11 05:33] LABS: Hemoglobin 8.7 g/dL (11.5-16.0)
[2020-03-11 05:52] LABS: Albumin, Blood 1.8 g/dL (3.4-5.0); Anion Gap 8 mmol/L (6-16); Blood Urea Nitrogen 27 mg/dL (8-24); Bun/Creatinine Ratio 29.6 (12.0-20.0); CO2, Blood 25 mmol/L (21-32); Calcium, Blood 8.2 mg/dL (8.5-10.1); Chloride, Blood 97 mmol/L (98-108); Creatinine, Blood 0.91 mg/dL (0.40-1.00); Glomerular Filtration Rate >60 (60-); Glucose, Blood 114 mg/dL (70-99); Magnesium, Blood 2.3 mg/dL (1.6-2.4); Phosphorus, Blood 2.7 mg/dL (2.5-4.9); Potassium, Blood 4.3 mmol/L (3.5-5.5); Sodium, Blood 130 mmol/L (136-145)
[2020-03-11] MEDS ORDERED: Colace100 MG PO (10:10)
[2020-03-11] MEDS ORDERED: FURO20 PO (10:11)
[2020-03-11] MEDS ORDERED: SENN187 PO (10:11)
[2020-03-11] MEDS ORDERED: SODCHL1 PO (10:12)
--- NOTE | 2020-03-11 12:27 | NUR ---
PT AWAKE DURING SHIFT REPORT. ASSISTED TO CHAIR FOR BREAKFAST. APPEARED TO FEEL BETTER. SODIUM LEVEL SLIGHTLY IMPROVED FROM YESTERDAY. DR ENCINAS IN TO SEE PT; DISCHARGE CRITERIA DISCUSSED WITH PT. PT AGREEABLE TO AND REQUESTING TO GO HOME WITH H/H. PT TO CHECK BP DAILY, HAVE SODIUM LEVEL CHECKED AND F/U WITH PCP PER D/C ORDERS. MEDS FAXED TO [facility] PER REQUEST. D/C INSTRUCTIONS DISCUSSED WITH PT AND . VERBALIZED UNDERSTANDING. ASSISTED OUT TO CAR VIA W/C BY [employer] PRODUCTION WORKER AND .
== END 2020-03-11 10:41 | disposition home health service (06) | DRG 871 ==
LOC: ER 21:16 → MEDS 03-04 02:20 → ENPENDDIS 03-11 09:36 → MEDS 03-11 10:41
PROVIDERS: Hospitalist; Internal Medicine Gastroenterology; Internal Medicine Nephrology; Physician Assistant; ADMIT Internal Medicine
DX: A41.51 Sepsis due to Escherichia coli [E. coli] (principal); G93.41 Metabolic encephalopathy; N39.0 Urinary tract infection, site not specified; E22.2 Syndrome of inappropriate secretion of antidiuretic hormone; D64.9 Anemia, unspecified; D69.6 Thrombocytopenia, unspecified; Z20.828 Contact with and (suspected) exposure to other viral communicable diseases; E78.5 Hyperlipidemia, unspecified; K21.9 Gastro-esophageal reflux disease without esophagitis; K57.30 Diverticulosis of large intestine without perforation or abscess without bleeding; E83.39 Other disorders of phosphorus metabolism; I12.9 Hypertensive chronic kidney disease with stage 1 through stage 4 chronic kidney disease, or unspecified chronic kidney disease; N18.2 Chronic kidney disease, stage 2 (mild); E87.70 Fluid overload, unspecified; G89.4 Chronic pain syndrome; M54.5 Low back pain; T42.1X5A Adverse effect of iminostilbenes, initial encounter; Z85.3 Personal history of malignant neoplasm of breast; F32.9 Major depressive disorder, single episode, unspecified; Z66 Do not resuscitate
CPT/HCPCS: 36415; 51702; 70450; 71045; 74177; 80048; 80053; 80069; 81001; 82140; 82533; 82565; 82947; 83605; 83690; 83735; 83930; 83935; 84100; 84300; 84443; 84550; 85014; 85018; 85025; 85610; 87040; 93005; 93010; 94640; 94760; 96365; 96375; 97110; 97110-CQ; 97116; 97161; 97530; 99285-25; A9270; A9270-GY; G0480; J1650; J1940; J2185; J7030; J7050; J7060; Q9967; U0002

== ENCOUNTER 2020-03-11 16:22 | Inpatient (IN) | payer MEDICARE, OTHER ==
[~2020-03-11] VITALS: Ht 172.7 cm; Wt 104.3 kg
[~2020-03-11 16:22] MED LIST changes: +Colace100 MG PO; +RANI150EL PO; +SENN187 PO; +SODCHL1 PO
[2020-03-11 17:13] LABS: BASOPHILS ABSOLUTE AUTO 0.03 K/mm3 (0.00-0.23); BASOPHILS PERCENT AUTO 0 % (0-2); EOSINOPHILS ABSOLUTE AUTO 0.02 K/mm3 (0.00-0.68); EOSINOPHILS PERCENT AUTO 0 % (0-6); Hematocrit 26.7 % (33.0-51.0); Hemoglobin 9.2 g/dL (11.5-16.0); Mean Corpuscular HGB 29.8 pg (26.0-34.0); Mean Corpuscular HGB Conc 34.5 g/dL (31.5-36.5); Mean Corpuscular Volume 86 fL (80-100); Mean Platelet Volume 9.9 fL (9.1-12.4); Platelet Count 96 K/mm3 (150-400); RDW Coefficient Variation 14.8 % (11.7-14.2); RDW Standard Deviation 45.8 fL (35.1-46.3); Red Blood Cell Count 3.09 M/mm3 (3.80-5.20)
[2020-03-11 17:15] LABS: IMMATURE GRAN ABSOLUTE AUTO 0.12 K/mm3 (0.00-0.10); IMMATURE GRAN PERCENT AUTO 1 % (0-1); LYMPHOCYTES ABSOLUTE AUTO 1.86 K/mm3 (0.84-5.20); LYMPHOCYTES PERCENT AUTO 15 % (21-46); MONOCYTES ABSOLUTE AUTO 2.96 K/mm3 (0.16-1.47); MONOCYTES PERCENT AUTO 23 % (4-13); NEUTROPHILS ABSOLUTE AUTO 7.81 K/mm3 (1.96-9.15); NEUTROPHILS PERCENT AUTO 61 % (41-73)
[2020-03-11 17:23] LABS: Troponin I <0.015 ng/mL (0.000-0.040)
[2020-03-11 17:24] LABS: Alanine Aminotransfer (ALT/SGP 17 U/L (12-78); Albumin, Blood 1.8 g/dL (3.4-5.0); Albumin/Globulin Ratio 0.5 (0.8-1.8); Alk Phos 81 U/L (50-136); Anion Gap 9 mmol/L (6-16); Aspartate Aminotrans (AST/SGOT 110 U/L (12-37); Blood Urea Nitrogen 35 mg/dL (8-24); Bun/Creatinine Ratio 34.3 (12.0-20.0); CO2, Blood 23 mmol/L (21-32); Calcium, Blood 8.3 mg/dL (8.5-10.1); Chloride, Blood 96 mmol/L (98-108); Creatinine, Blood 1.02 mg/dL (0.40-1.00); Globulin, Blood 3.9 g/dL (2.2-4.0); Glomerular Filtration Rate 57 (60-); Glucose, Blood 126 mg/dL (70-99); Potassium, Blood 4.5 mmol/L (3.5-5.5); Sodium, Blood 128 mmol/L (136-145); Total Protein, Blood 5.7 g/dL (6.4-8.2)
[2020-03-11 17:46] LABS: Source, Urine Clean Catch
[2020-03-11 17:50] LABS: Appearance, Urine Hazy (Clear); Bilirubin, Urine Neg (Neg); Blood, Urine 1+ (Neg); Color, Urine Amber (P-Yellow); Glucose Qualitative, Urine Neg (Neg); Ketones, Urine 1+ (Neg); Leukocyte Esterase, Urine 1+ (Neg); Nitrite, Urine Neg (Neg); Protein, Urine 2+ (Neg); Urobilinogen, Urine NORM (Normal)
[2020-03-11 17:57] LABS: Amorphous Light (0-Heavy); Bacteria Few /hpf; Red Blood Cells, Urine 0-2 /hpf (0-2); Squamous Epithelial Cells Rare /hpf (Few); White Blood Cells, Urine 0-2 /hpf (0-5)
--- NOTE | 2020-03-11 23:00 | NUR ---
RECEIVED REPORT FROM LEE ED RN. PT TRANSPORTED TO MEDICAL FLOOR VIA GURNEY, TRANSFERRED TO BED. ORIENTED TO ROOM AND UNIT. PT DROWSY, BUT AROUSES WITH VERBAL STIMULI, BP'S AND VS STABLE, RESPS EVEN AND UNLABORED. SITUATED IN BED. CALL LIGHT, POSSESSIONS IN REACH, BED IN LOWEST POSITION WITH ALARM ON. WILL CONTINUE TO MONITOR.
--- NOTE | 2020-03-12 00:34 | NUR ---
SPOKE TO DR. BATISTA REGARDING HOLDING PT'S SCHEDULED BUSPAR AND MORPHINE D/T DROWSINESS, AND PT'S LOW 02 SATS. ORDERS RECEIVED. WILL CONTINUE TO MONITOR PT CONDITION.
[2020-03-12 05:48] LABS: Bun/Creatinine Ratio 33.9 (12.0-20.0); Calcium, Blood 7.7 mg/dL (8.5-10.1); Creatinine, Blood 0.97 mg/dL (0.40-1.00); Potassium, Blood 4.3 mmol/L (3.5-5.5)
--- NOTE | 2020-03-12 06:26 | NUR ---
SHIFT SUMMARY PT A&O TO SELF AND PLACE, INCREASINGLY CONFUSED AT TIMES. INCREASINGLY ALERT SINCE ARRIVAL TO FLOOR. BP'S STABLE, TEMPERATURE SLIGHTLY ELEVATED AT 99.6, MEDICATED FOR PAIN, WHICH HELPED TO REDUCE PT'S TEMP WELL. AFEBRILE AT THIS TIME. PT ASLEEP, APPEARS COMFORTABLE. O2 SATS STABLE ON 02 1L/NC. DENIES NEEDS AT THIS TIME. CALL LIGHT, POSSESSIONS IN REACH. BED IN LOW POSITION WITH ALARMS ON. WILL CONTINUE TO MONITOR AND PROVIDE CARE NEEDED UNTIL DAY RN ASSUMES CARE.
--- NOTE | 2020-03-12 17:22 | NUR ---
SUMMARY PT IS A/O X3-4 THIS AM, SLIGHTLY FORGETFUL OF TIME/DATE. SHE STATE CONTINUING WEAKNESS/FATIGUE. STATE CHR BACK PAIN, SCHEDULED MSIR GIVEN THIS AM HOWEVER PT HAS BEEN SLEEPING MOST OF DAY, DR COLEMAN STATE TO HOLD AFTERNOON DOSE & WILL REVIEW MEDICATIONS. 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 PT HAD PT/OT TODAY, WAS UP IN CHAIR FOR APPROX 1HR THEN REQUEST BACK TO BED. SHE SEEMS UNMOTIVATED @ THIS TIME, HAVE ENCOURAGED HER TO ENGAGE IN TX. NA+ 128, DR COLEMAN STATE CHRONIC. WBC 12.8, DR KNOX, STATE SHE JUST FINISHED 2 WKS ANTIBX. COVID19 NEGATIVE.
[2020-03-13 08:11] LABS: BASOPHILS ABSOLUTE AUTO 0.03 K/mm3 (0.00-0.23); BASOPHILS PERCENT AUTO 0 % (0-2); EOSINOPHILS PERCENT AUTO 0 % (0-6); Hematocrit 21.8 % (33.0-51.0); Hemoglobin 7.6 g/dL (11.5-16.0); Mean Corpuscular HGB 30.4 pg (26.0-34.0); Mean Corpuscular HGB Conc 34.9 g/dL (31.5-36.5); Mean Corpuscular Volume 87 fL (80-100); NRBC ABSOLUTE 0.02 K/mm3 (0.00-0.02); NRBC Auto 0.2 /100 WBC (0.0-0.2); Platelet Count 85 K/mm3 (150-400); RDW Coefficient Variation 14.9 % (11.7-14.2); RDW Standard Deviation 45.8 fL (35.1-46.3); White Blood Cell Count 9.87 K/mm3 (4.00-11.30)
[2020-03-13 08:26] LABS: IMMATURE GRAN ABSOLUTE AUTO 0.09 K/mm3 (0.00-0.10); IMMATURE GRAN PERCENT AUTO 1 % (0-1); LYMPHOCYTES ABSOLUTE AUTO 1.36 K/mm3 (0.84-5.20); LYMPHOCYTES PERCENT AUTO 14 % (21-46); MONOCYTES ABSOLUTE AUTO 2.34 K/mm3 (0.16-1.47); MONOCYTES PERCENT AUTO 24 % (4-13); NEUTROPHILS ABSOLUTE AUTO 6.05 K/mm3 (1.96-9.15); NEUTROPHILS PERCENT AUTO 61 % (41-73)
[2020-03-13 08:30] LABS: Alanine Aminotransfer (ALT/SGP 15 U/L (12-78); Albumin, Blood 1.5 g/dL (3.4-5.0); Albumin/Globulin Ratio 0.4 (0.8-1.8); Alk Phos 72 U/L (50-136); Anion Gap 5 mmol/L (6-16); Aspartate Aminotrans (AST/SGOT 105 U/L (12-37); Bilirubin, Total 0.9 mg/dL (0.1-1.0); Blood Urea Nitrogen 28 mg/dL (8-24); Bun/Creatinine Ratio 37.8 (12.0-20.0); CO2, Blood 25 mmol/L (21-32); Calcium, Blood 7.7 mg/dL (8.5-10.1); Chloride, Blood 96 mmol/L (98-108); Creatinine, Blood 0.74 mg/dL (0.40-1.00); Globulin, Blood 3.4 g/dL (2.2-4.0); Glomerular Filtration Rate >60 (60-); Glucose, Blood 99 mg/dL (70-99); Potassium, Blood 4.3 mmol/L (3.5-5.5); Sodium, Blood 126 mmol/L (136-145); Total Protein, Blood 4.9 g/dL (6.4-8.2)
--- NOTE | 2020-03-13 15:38 | NUR ---
SUMMARY PT THIS AM WAS SOMEWHAT BRIGHTER THAN PREVIOUS DAY, SHE WAS ABLE TO STATE DATE/TIME. SMILING, INTERACTING w WHO WAS IN TO VISIT. SHE WAS UP IN CHAIR WHEN DR COLEMAN CAME IN FOR ROUNDING. SHE STAYED UP FOR MOST TIL AFTER LUNCH. SHE WENT BACK TO BED THIS AFTERNOON. @ X'S MENTATION SEEMS SLOW, CONFUSED. PHYTHER ATTEMPTED TX THIS AFTERNOON HOWEVER STATE UNSUCCESSFUL D/T PT'S BIZZARE MENTATION. VS HAVE BEEN STABLE, BP RUNS LOW LAST 108/69, AFEBRILE TODAY. H&H LOW THIS AM, 7.6/21.8, DR KNOX, ORDER REPEAT LABS THIS AFTERNOON. PLAN CONTINUES FOR TRANSFER TO SNF WHEN APPROP.
[2020-03-13 15:53] LABS: Hematocrit 24.7 % (33.0-51.0); Hemoglobin 8.6 g/dL (11.5-16.0)
--- NOTE | 2020-03-14 05:05 | NUR ---
69 YEAR OLD FEMALE CONTINUES IN CONTACT ISOLATION FOR ESBL IN URINE WITH MOST RECENT CULTURE WITH NO GROWTH. PT APPEARS DEMENTED FLAT AFFECT WITH LITTLE MOTIVATION TO BECOME ACTIVE. PT ON MORPHINE CONTROLLED RELEASE BID MORPHINE IS LISTED ALLERY BUT PT STATES SHE IS ONLY ALLERGIC TO LIQUID MORPHINE. HOME MED. PAIN WITH ACTIVITY PT HAS BEEN INCONTIENT OF URINE & HAS POOR ORAL INTAKE. OFFERED SUPPLEMENTS. PT UNABLE TO STATE YEAR OR MONTH BUT OREINTED TO PLACE [facility]OS[facility]. FOR 3 YEARS TO [facility]IR WHO IS UNABLE TO CARE FOR PT UPON DC FROM [facility] SAME DAY READMISSION. PT HAS DUSKY COOL FEET WHICH SHE SAYS BURN. SHE REFUSED ROSENDO HOSE. HOLLERS OUT HELP ME, ECHOS SPEECH WITH INAPPROPRIATE SPEECH PATTERN. FALL PRECAUTIONS IN PLACE. ALBUMIN LOW WITH 3RD SPACING OF FLUIDS. NO FEVERS THIS SHIFT. PT SEEMS FOCUSED ON BACK PAIN SHE SAYS COMPRESSION FRACTURES.
[2020-03-14 05:11] LABS: BASOPHILS ABSOLUTE AUTO 0.04 K/mm3 (0.00-0.23); BASOPHILS PERCENT AUTO 0 % (0-2); EOSINOPHILS ABSOLUTE AUTO 0.03 K/mm3 (0.00-0.68); EOSINOPHILS PERCENT AUTO 0 % (0-6); Hemoglobin 7.8 g/dL (11.5-16.0); Mean Corpuscular HGB 30.5 pg (26.0-34.0); Mean Corpuscular HGB Conc 35.5 g/dL (31.5-36.5); Mean Corpuscular Volume 86 fL (80-100); Mean Platelet Volume 10.5 fL (9.1-12.4); NRBC ABSOLUTE 0.02 K/mm3 (0.00-0.02); NRBC Auto 0.2 /100 WBC (0.0-0.2); Platelet Count 81 K/mm3 (150-400); RDW Coefficient Variation 14.8 % (11.7-14.2); RDW Standard Deviation 45.4 fL (35.1-46.3); Red Blood Cell Count 2.56 M/mm3 (3.80-5.20); White Blood Cell Count 11.37 K/mm3 (4.00-11.30)
[2020-03-14 05:13] LABS: IMMATURE GRAN ABSOLUTE AUTO 0.13 K/mm3 (0.00-0.10); IMMATURE GRAN PERCENT AUTO 1 % (0-1); LYMPHOCYTES ABSOLUTE AUTO 1.71 K/mm3 (0.84-5.20); LYMPHOCYTES PERCENT AUTO 15 % (21-46); MONOCYTES ABSOLUTE AUTO 2.63 K/mm3 (0.16-1.47); MONOCYTES PERCENT AUTO 23 % (4-13); NEUTROPHILS ABSOLUTE AUTO 6.83 K/mm3 (1.96-9.15); NEUTROPHILS PERCENT AUTO 60 % (41-73)
[2020-03-14 05:39] LABS: Anion Gap 6 mmol/L (6-16); Blood Urea Nitrogen 29 mg/dL (8-24); Bun/Creatinine Ratio 30.8 (12.0-20.0); CO2, Blood 25 mmol/L (21-32); Calcium, Blood 7.7 mg/dL (8.5-10.1); Chloride, Blood 94 mmol/L (98-108); Creatinine, Blood 0.94 mg/dL (0.40-1.00); Glomerular Filtration Rate >60 (60-); Glucose, Blood 108 mg/dL (70-99); Potassium, Blood 4.3 mmol/L (3.5-5.5); Sodium, Blood 125 mmol/L (136-145)
[2020-03-14 09:43] LABS: IMMATURE RETIC FRACTION 18.9 % (2.3-16.0); RETIC HGB EQUIVALENT 36.9 pg (28.20-36.60); RETICULOCYTE ABSOLUTE 0.1272 M/mm3 (0.0200-0.1100); RETICULOCYTE COUNT PERCENT 4.95 % (0.50-2.50)
[2020-03-14 11:17] LABS: Percent Saturation 33.7 % (15.0-50.0)
--- NOTE | 2020-03-14 19:32 | NUR ---
PT ANSWERS QUESTION APPROPRATELY BUT IS FORGETFUL AND ANXIOUS. PT'S WAS AT THE BEDSIDE FOR A SHORT TIME THIS SHIFT. PT SEEMED REASSURED. PT WAS MEDICATED X1 FOR CHRONIC PAIN AND X1 FOR NAUSEA. PT HAS HAD A DECREASED APETITE. PT IS A 1 PERSON SBA.
--- NOTE | 2020-03-15 03:52 | NUR ---
0200 TOOK OVER CARE OF PT FROM CALI LUIS. PT LYING IN BED, EYES CLOSED, APPEARS TO BE RESTING. BREATHING IS EVEN, UNLABORED. NO APPARENT SIGNS OF DISTRESS. CALL LIGHT IS IN REACH.
--- NOTE | 2020-03-15 03:53 | NUR ---
PT LYING IN BED, EYES CLOSED, APPEARS TO BE RESTING. BREATHING IS EVEN, UNLABORED. NO APPARENT SIGNS OF DISTRESS. CALL LIGHT IS IN REACH.
[2020-03-15 05:32] LABS: BASOPHILS ABSOLUTE AUTO 0.02 K/mm3 (0.00-0.23); BASOPHILS PERCENT AUTO 0 % (0-2); EOSINOPHILS ABSOLUTE AUTO 0.04 K/mm3 (0.00-0.68); EOSINOPHILS PERCENT AUTO 0 % (0-6); Hematocrit 19.3 % (33.0-51.0); Hemoglobin 6.9 g/dL (11.5-16.0); Mean Corpuscular HGB 30.5 pg (26.0-34.0); Mean Corpuscular HGB Conc 35.8 g/dL (31.5-36.5); Mean Corpuscular Volume 85 fL (80-100); Mean Platelet Volume 10.2 fL (9.1-12.4); Platelet Count 84 K/mm3 (150-400); RDW Coefficient Variation 14.8 % (11.7-14.2); RDW Standard Deviation 44.8 fL (35.1-46.3); Red Blood Cell Count 2.26 M/mm3 (3.80-5.20); White Blood Cell Count 11.32 K/mm3 (4.00-11.30)
[2020-03-15 05:36] LABS: IMMATURE GRAN ABSOLUTE AUTO 0.11 K/mm3 (0.00-0.10); IMMATURE GRAN PERCENT AUTO 1 % (0-1); LYMPHOCYTES PERCENT AUTO 14 % (21-46); MONOCYTES ABSOLUTE AUTO 2.25 K/mm3 (0.16-1.47); MONOCYTES PERCENT AUTO 20 % (4-13); NEUTROPHILS PERCENT AUTO 64 % (41-73)
--- NOTE | 2020-03-15 05:39 | NUR ---
PT IS AAO X 1 TO SELF, ON RA. ROSENDO ARREOLA. NO REPORTS OF DISCOMFORT FOR THIS SHIFT OR APPARENT SIGNS OF DISTRESS THIS SHIFT.
--- NOTE | 2020-03-15 05:39 | NUR ---
PT LYING IN BED, EYES CLOSED, APPEARS TO BE RESTING. BREATHING IS EVEN, UNLABORED. NO APPARENT SIGNS OF DISTRESS. CALL LIGHT IS IN REACH. NO OTHER CHANGES THIS SHIFT.
[2020-03-15 05:57] LABS: Anion Gap 7 mmol/L (6-16); Blood Urea Nitrogen 23 mg/dL (8-24); Bun/Creatinine Ratio 29.5 (12.0-20.0); CO2, Blood 24 mmol/L (21-32); Calcium, Blood 7.6 mg/dL (8.5-10.1); Chloride, Blood 94 mmol/L (98-108); Creatinine, Blood 0.78 mg/dL (0.40-1.00); Glomerular Filtration Rate >60 (60-); Glucose, Blood 96 mg/dL (70-99); Potassium, Blood 4.5 mmol/L (3.5-5.5); Sodium, Blood 125 mmol/L (136-145)
--- NOTE | 2020-03-15 09:51 | NUR ---
JEN HOLD ADA PER DR COLEMAN
--- NOTE | 2020-03-15 11:25 | NUR ---
DR COLEMAN ASKING ONLY 2 UNITS PRBC TODAY. ONE FROM DR JOHNSON AND ONE FROM HIM.
--- NOTE | 2020-03-15 11:27 | NUR ---
PT ASYMPTOMATIC. LOWER B/P. 93/54 P 75. PT S/O STATES THIS IS NORMAL FOR HER. CALLED DR COLEMAN, NO NEW ORDERS. 2 U PRBC ORDERED. ONE RUNNING AT THIS TIME .
--- NOTE | 2020-03-15 14:46 | NUR ---
bp 95/ called dr viramontes. [place] to give lena
--- NOTE | 2020-03-15 16:26 | NUR ---
RADIOLOGY CALLED ASKED IF CAN RUN TEST TOMORROW, A GROUP, CANT RUN BUT ONLY ONE NOW IS GETING BLOOD. CALLED DR ROLLE. CALI HIS ASST OKAYED.
--- NOTE | 2020-03-15 19:26 | NUR ---
PT HAS BEEN QUITE PLEASANT TODAY. NO C/O PAIN. PT RECEIVED 2 UNITS BLOOD TODAY. LAB WAS NOTIFIED OF DISCREPANCY. PT HAD EPISODE OF LOWER MENTATION. UNABLE TO GIVE S/O NAME OR HIS HAD EARLIER. DR BOWERS. IS AWARE AND IS A PATTERN FOR HER. NO NEW ORDERS. THIS LASTED PERHAPS 3-4 HRS. LATER DID RETURN TO NORMAL MENTATION. ABLE TO TELL ME HIS NAME AND AGAIN. REMEMBERS MY NAME, ETC. NO OTHER CONCERNS AT THIS TIME. BED IN LOW POSITION, CALL LITE IN REACH, BED ALARM ON FOR SAFETY.
[2020-03-16 04:49] LABS: BASOPHILS ABSOLUTE AUTO 0.03 K/mm3 (0.00-0.23); BASOPHILS PERCENT AUTO 0 % (0-2); EOSINOPHILS PERCENT AUTO 0 % (0-6); Hematocrit 29.3 % (33.0-51.0); Hemoglobin 10.7 g/dL (11.5-16.0); IMMATURE GRAN ABSOLUTE AUTO 0.12 K/mm3 (0.00-0.10); IMMATURE GRAN PERCENT AUTO 1 % (0-1); LYMPHOCYTES ABSOLUTE AUTO 1.13 K/mm3 (0.84-5.20); LYMPHOCYTES PERCENT AUTO 9 % (21-46); MONOCYTES ABSOLUTE AUTO 2.16 K/mm3 (0.16-1.47); MONOCYTES PERCENT AUTO 17 % (4-13); Mean Corpuscular HGB 30.7 pg (26.0-34.0); Mean Corpuscular HGB Conc 36.5 g/dL (31.5-36.5); Mean Corpuscular Volume 84 fL (80-100); Mean Platelet Volume 9.5 fL (9.1-12.4); NEUTROPHILS ABSOLUTE AUTO 9.37 K/mm3 (1.96-9.15); NEUTROPHILS PERCENT AUTO 73 % (41-73); Platelet Count 76 K/mm3 (150-400); RDW Coefficient Variation 14.7 % (11.7-14.2); RDW Standard Deviation 43.9 fL (35.1-46.3); Red Blood Cell Count 3.48 M/mm3 (3.80-5.20); White Blood Cell Count 12.81 K/mm3 (4.00-11.30)
[2020-03-16 05:14] LABS: Anion Gap 9 mmol/L (6-16); Blood Urea Nitrogen 21 mg/dL (8-24); CO2, Blood 23 mmol/L (21-32); Calcium, Blood 7.8 mg/dL (8.5-10.1); Chloride, Blood 94 mmol/L (98-108); Creatinine, Blood 0.84 mg/dL (0.40-1.00); Glomerular Filtration Rate >60 (60-); Glucose, Blood 105 mg/dL (70-99); Potassium, Blood 4.1 mmol/L (3.5-5.5); Sodium, Blood 126 mmol/L (136-145)
[2020-03-16 07:10] LABS: COMPLEMENT C3, SERUM 88 mg/dL (82-167); COMPLEMENT C4, SERUM 15 mg/dL (14-44)
--- NOTE | 2020-03-16 07:25 | NUR ---
03/16/20 0610 NO BM THIS SHIFT. PT SLEPT ON AND OFF. WAS INCONTINENT OF URINE SEVERAL TIMES THIS SHIFT REPOSITIONED SIDE TO SIDE. PT WEAK AND TRYS TO HELP. AT 4 AM, PT HAD TEMP BUT HAD 4 BLANKETS ON. DEPUTY [place] [employer] REMOVED THREE. HEELS FLOATED ON PILLOWS AND ARE LESS PINK THIS AM. FLUID RESTRICTION IN EFFECT.
[2020-03-16 10:55] LABS: CPK Creatine Kinase 26 U/L (26-193); Troponin I <0.015 ng/mL (0.000-0.040)
[2020-03-16 11:02] LABS: Creatine Kinase MB <1.0 ng/mL (0.0-3.6); Creatine Kinase MB Index Unable to Calculate (0.0-4.0)
--- NOTE | 2020-03-16 11:57 | NUR ---
0900 PT PLEASANT BUT STATES FEELS WEAK AND BAD. NEW BP 88/57. P 87 IS IRREG. MOVED PT FROM CHAIR BACK TO BED. CALLED DR GARCIA. REQUEST TELE 09 DR GARCIA ORDERS FOR EKG STAT AND PLACE TELE. ALSO ECHO TODAY, CARDIAC ENZYMES X3 Q6. N/S BOLUS 250 AND NS AT 100 CONT. HOLD LASIX. 0920 EKG IS AFIB RVR RATE 154. TELE PLACED. BOLUS STARTING. 1030 BOLUS DONE, IVF RUNNING. PT H/R STILL AFIB 140'S CALLED DR ARTIS. ORDERS METOPROLOL 5 MG IV Q15 X3 IF H/R >120 1100 START METOPROLOL 109/70 P 153 PER TELE. 1115 RECHECK 90/61 P 135 AVG. HOLDING 2ND METOPROLOL FOR BP. RECHECK 1135 85/55 P 115-120 PER TELE PT STATES FEELS SOME BETTER. CALLED DR ARTIS. HOLD METOPROLOL GIVE ANOTHER 250 BOLUS. DONE. 1200 BOLUS DONE, CONTINUING NS AT 100 BP 94/61. PER TELE RATE 110-120 DR NOTIFIED
[2020-03-16 13:28] LABS: Stool Occult Blood Guaiac 1 Neg (Neg)
--- NOTE | 2020-03-16 14:45 | NUR ---
CALI U/S CALLED. STATES CANNOT DO U/S GUIDED AXILARY TODAY. CAN DO OUTPATIENT IF CAN GET DR ROLLE TO WRITE ORDER FOR OUTPT. THEN MIGHT BE ABLE TO DO RIGHT AWAY. MIRTA BYRNES. CALLED TO STATE CANNOT DO UNTIL THURSDAY. HOWEVER USUALLY DO ON OUTPATIENT BASIS. I WILL SPEAK TO DR ROLLE AND SEE. HOWEVER, PT NOW DECIDING IF WILL DO ANY TX OR TESTING AT ALL. WILL ADVISE.
--- NOTE | 2020-03-16 15:40 | NUR ---
Received call from Bedside ELIZABETH Anand. Discussed case and concerns. 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 Pt is resting in bed upon arrival. Pt's son Vin is at bedside. Engaged in therapeutic discussion regarding goals of care. Offered therapeutic listening as Pt report plan to not pursue treatment for cancer. Discussed hospice as an option and attempted to educate on hospice philosophy. Pt reports plan to not pursue hospice. Son reports Pt's wishes are to pass away here at the hospital. Suggested the importance of Pt not being imminent and even with not pursuing treatment for cancer, Pt may live for sometime. Attempted to discuss the pros and cons of support with hospice with Pt turning her head and closing her eyes. Confirmed with Pt this gesture was to end conversation. Son asks if there is away to speed up the process where the Pt would pass away quicker. Instructed that [place] is a "Right to state" but the closest doctors are in [place]. Explained [facility]'s policies. Pt is requesting resources for her son for grieving. Instructed this RN will place a chief payroll clerk consult to provide resources. Pt and son express appreciation and report no other concerns. Spoke with Dr Rose, discussed case and Pt's wishes. Spoke with Bedside ELIZABETH Anand and discussed case. Palliative Care will remain available.
--- NOTE | 2020-03-16 16:58 | NUR ---
CALLED TELE. PT H/R AVGING 148. MONITOR STATES DR WAS JUST IN TO OBSERVE TELE.
[2020-03-16 18:11] LABS: ANTI-DSDNA ANTIBODIES <1 IU/mL (0-9); RNP ANTIBODIES <0.2 AI (0.0-0.9); SJOGREN'S ANTI-SS-A <0.2 AI (0.0-0.9); SJOGREN'S ANTI-SS-B <0.2 AI (0.0-0.9); SMITH ANTIBODIES <0.2 AI (0.0-0.9)
--- NOTE | 2020-03-16 18:11 | NUR ---
PT PLEASANT COOP TODAY. H/R HAS BEEN UP TODAY. WE HAVE TRIED DIFFERENT THINGS TO BRING DOWN. FLUIDS, MEDS. AFTER DISCUSSIONS WITH FAMILY/PATIENT, THE RESULT IS DETERMINED TO BE A MOVE TO A COMFORT CARE STATUS. PATIENT REMAINS VERY TIRED, BUT STATES IS COMFORTABLE. NO OTHER CONCERNS AT THIS TIME. BED IN LOW POSITION, CALL LITE IN REACH, CALLS APROP. BED ALARM ON FOR SAFETY
[2020-03-16 22:35] LABS: Source, Urine Catheter
[2020-03-16 22:38] LABS: Appearance, Urine Clear (Clear); Bilirubin, Urine Neg (Neg); Blood, Urine 1+ (Neg); Color, Urine Amber (P-Yellow); Glucose Qualitative, Urine Neg (Neg); Ketones, Urine Neg (Neg); Leukocyte Esterase, Urine Neg (Neg); Nitrite, Urine Pos (Neg); Protein, Urine 2+ (Neg); Specific Gravity, Urine 1.015 (1.003-1.022); Urobilinogen, Urine NORM (Normal)
[2020-03-16 22:51] LABS: Bacteria Many /hpf; Red Blood Cells, Urine 0-2 /hpf (0-2); Squamous Epithelial Cells Not Seen /hpf (Few)
--- NOTE | 2020-03-17 04:22 | NUR ---
SHIFT SUMMARY PT HAS BEEN CONFUSED T/O SHIFT, MEDICATED PER SEP FOR PAIN (SCHED) ATIVAN ADMIN 1X FOR ANXIETY- PT TOLERATED WELL AND SLEPT T/O THE NIGHT AFTER ADMIN, SON HAS REMAINED AT BEDSIDE T/O SHIFT, S/O AT BEDSIDE FOR SEVERAL HOURS THIS SHIFT, PT APPEARS TO BE SLEEPING COMFORTABLY @ THIS TIME W/SON SLEEPING AT BEDSIDE, BED ALARM ACTIVE, CALL LIGHT NEXT TO PT & SON, WILL CONT TO MONITOR UNTIL REPORT GIVEN TO DAY RN.
--- NOTE | 2020-03-17 16:27 | NUR ---
SHIFT SUMMARY PATIENT MEDICATED X1 FOR ANXIETY, X1 FOR FEVER, X2 FOR PAIN. FAMILY AT BEDSIDE. PATIENT REPOSITIONED Q2. PATIENT SLEEPING MOST OF SHIFT WITH NO NONVERBAL SIGNS OF PAIN OR DISTRESS.
--- NOTE | 2020-03-18 04:45 | NUR ---
SHIFT SUMMARY PT HAS BEEN MORE ORIENTED THIS SHIFT, ABLE TO ESPRESSS NEEDS, FAMILY AT BEDSIDE T/O SHIFT, MEDICATED PER MAR FOR PAIN/ANXIETY, REPOS Q2, PT SLEEPING AT THIS TIME, CALL LIGHT IN REACH FOR PT & FAMILY, WILL CONT TO MONITOR UNTIL REPORT GIVEN TO DAY RN.
--- NOTE | 2020-03-18 16:53 | NUR ---
THE NURSE AND I HAVE OFFERED TO REPOSITION Q2H AND THE PATIENT HAS BEEN COMFORTABLE AND FAMILY REFUSED REPOSITIONS
--- NOTE | 2020-03-18 17:42 | NUR ---
PT. GOT BED BATH AND REPOSITIONED. PT STATED THEY ARE COMFORTABLE
--- NOTE | 2020-03-19 04:11 | NUR ---
SHIFT SUMMARY PT HAS HAD NO ACUTE CHANGES THIS SHIFT, MEDICATED PER MAR FOR PAIN/ANX, SON HAS REMAINED AT BEDSIDE T/O SHIFT, REPOS Q2 FAMILY ALLOWED, PT APPEARS TO BE SLEEPING COMFORTABLY AT THIS TIME, WILL CONT TO MONITOR UNTIL REPORT GIVEN TO DAY RN.
--- NOTE | 2020-03-19 07:00 | NUR ---
PT JUST REPOSITIONED BY NIGHT RN APPEARS COMFORTABLE PT SON AT THE BEDSIDE.
--- NOTE | 2020-03-19 07:31 | NUR ---
ASSUMED CARE OF PT- REPORT COMPLETED OUTSIDE THE ROOM AT THE REQUEST OF THE PT FAMILY. PER REPORT THE PT IS ON COMFORT CARE, HER SON IS AT THE BEDSIDE AND WILL CALL IF THE PT NEEDS ANYTHING. PT IS AWAKE INTERMITENTLY AND IS ABLE TO TELL STAFF SHE IS READY TO "GO." PER REPORT THE PT SON IS GOOD AT LETTING THE STAFF KNOW IF SHE NEEDS ANYTHING TO KEEP HER COMFORTABLE. PT LAST MEDICATED FOR PAIN AT 0600 AND LAST REPOSITIONED AT 0630 (PER REPORT FROM NIGHT ELIZABETH PERES).
--- NOTE | 2020-03-19 09:00 | NUR ---
COMFORT CARE NOTE- PT SON AT THE BEDSIDE PT APPEARS COMFORTABLE DECLINED MEDICATION AND REPOSITION AT THIS TIME. STATED PT WOULD PROBABLY NEED BOTH PAIN AND ANXIETY MEDICATION AT 1030. WILL REASSESS AT THAT TIME.
--- NOTE | 2020-03-19 10:30 | NUR ---
COMFORT CARE NOTE- PT SON REQUESTED PAIN AND ANXIETY MEDICATION, SOON SL ROXANOL WAS APPLIED UNDER PT TOUNG HER BREATHING SLOWED TO A MORE RELAXED PACE, MEDICATED FOR AIR HUNGER WITH THE ROXANOL SON AGREED WHEN STAFF SPOKE ABOUT NOT MEDICATING FOR ANXIETY THE PT APPEARS TO BE RELAXED AND COMFORTABLE AFTER THE ROXANOL. WILL CTM PT AT THIS TIME. FAMILY AT THE BEDSIDE, PLAN TO REPOSITION PT IN ABOUT 15-30 MIN.
--- NOTE | 2020-03-19 11:00 | NUR ---
PALLIATIVE CARE NURSE'S REPOSITIONED PT- PER REPORT FROM THEM THE PALLIATIVE CARE NURSE'S SHE WAS PAINFUL T/O THE PROCESS OF REPOSITIONING BUT SEEMED COMFORTABLE AND RELAXED ONCE SHE WAS IN THE NEW POSITION.
--- NOTE | 2020-03-19 11:56 | NUR ---
SPIRITUAL CARE CAME TO VISIT THE PT AND FAMILY- PT SON HAD STEPPED OUT FOR A MINUTE SO AT THE BEDSIDE. SPIRITUAL CARE UPDATED RN THAT PT SEEMS TO BE HAVING HICCUP EPISODES. WENT TO EVALUATE THE PT AND SHE HAS OCCASSIONAL HICCUPS, SPOKE TO THE PT SO ABOUT TRYING TO SOOTH THESE THE PT DOES NOT APPEAR TO BE AFFECTED BY THEM. THE PT SO DECLINED ANY ADDITIONAL MEDICATION AT THIS TIME. CAME TO ROUND ON THE PT AT THE SAME TIME AND SPOKE TO THE PT SO.
--- NOTE | 2020-03-19 13:00 | NUR ---
FAMILY AT THE BEDSIDE STATES PT OS COMFORTABLE AT THIS TIME. PT APPEARS COMFORTABLE AT THIS TIME.
--- NOTE | 2020-03-19 15:12 | NUR ---
COMFORT CARE NOTE- PROVIDED 20MG SL ROXANOL, WASHED PT FACE AND LOTIONED HER FEET AND HANDS, NO RESPONSE FROM THE PT PT NO LONGER WAKING UP TODAY. SON STATES NO LUCID MOMENTS ANYMORE. CALLED PALLIATIVE CARE PT MEDICATED WITH ROXINOL FOR AIR HUNGER WITH ELEVATED RESP RATE. CALLED PALLIATIVE CARE RN JACKIE TO COME SEE AND ASSIST IN MEDICATING THE PT APPROPRIATELY.
--- NOTE | 2020-03-19 15:29 | NUR ---
PT MEDICATED WITH 1MG IV ATIVAN FINGERS AND TOES APPEAR TO BE BLUE IN COLOR POSSIBLY SOME LIGHT MODDELING TO THE BLE. PT RESP RATE STILL ELEVATED, PALLIATIVE CARE RN JACKIE SUGGESTS A REPEAT OF THE ROXANOL IF NO RESPONSE IN 30 MINUTES. WILL REEVALUATE IN 30 MINUTES.
--- NOTE | 2020-03-19 16:00 | NUR ---
COMFORT CARE NOTE- PT RESP RATE STILL ELEVATED, SON AT THE BEDSIDE AND REQUESTED SOME MORE MEDICATION TO HELP HER RELAX AND SLOW HER RAPID GASPY BREATHING. MEDICATED WITH 20 OF ROXANOL AGAIN. ACCESSORY MUSCLE USE SEEMED TO EASE A BIT JUST AFTER MEDICATING WILL CTM. PT FINGER TIPS AND TOES ARE BLUE. PALLIATIVE CARE AWARE SHE SEEMS TO BE TRANSITIONED AT THIS TIME, SEEMS EMINENT.
--- NOTE | 2020-03-19 16:30 | NUR ---
PT FAMILY CAME OUT AND ASKED STAFF TO COME THEY FELT IT WAS TIME. PT WAS CONFIRMED TO HAVE NO RESP OR PULSE AT 1630. PROFESSOR OF POLITICAL SCIENCE NOTIFIED AT 1630 DR CAMPBELL NOTIFIED AT 1640 FAMILY PRESENT AT [facility] CALLED PALLIATIVE CARE RN JACKIE BETTS CHOSE [facility] CALLED PASTORAL CARE MIRTA AT THE FAMILY'S REQUEST TO HELP WITH EMOTIONAL DISTRESS. ANALYTICAL TECHNICIAN ALEX AWARE OF ALL INFO.
--- NOTE | 2020-03-19 17:07 | NUR ---
2 visits with Pt and family this afternoon. Fist visit Pt was resting in bed and unresponsive. Respirations increased with labored breathing. Family at bedside and offered emotional support. Educated on actively dying stage with S/S Pt may experience. Answered qestions and listened to concerns. Discussed case with Bedside ELIZABETH Echols and reviewed comfort medications. [facility] will offer additional comfort medications. 2nd visit received call from Bedside ELIZABETH Echols reporting Pt peaceful. Family requesting Palliative Care visit. Arrived and offered condolences. Discussed homes to choose from. Family chooses [facility] in [place]. Boom Boss Polina arrives to offer spiritual and emotional support. Discussed case with Bedside ELIZABETH Echols, incubator tender Alex, and relayed family's choice for homes. Family has another member arriving and will let staff know when it's ok to call home for transportation. Palliative Care will remain available.
--- NOTE | 2020-03-19 17:15 | NUR ---
Spiritual Care intial note: Two visits today with Mary Kate's family. Prayer provided each time. Anticipatory bereavement senior genetic counselor well received. Marcia's son, Vin, and SO, Ham present and tearful at TOD. Prayer of commendation and gentle senior genetic counselor given. [facility] has selected [facility] for arrangements. Family verbalized appreciaition for compassionate care by nursing.
[2020-03-19 18:08] LABS: A/G RATIO 0.9 (0.7-1.7); ALBUMIN 1.8 g/dL (2.9-4.4); ALPHA-1-GLOBULIN 0.3 g/dL (0.0-0.4); ALPHA-2-GLOBULIN 0.3 g/dL (0.4-1.0); BETA GLOBULIN 0.5 g/dL (0.7-1.3); GLOBULIN, TOTAL 2.1 g/dL (2.2-3.9); IMMUNOFIXATION RESULT, SERUM Comment: (.); IMMUNOGLOBULIN A, QN, SERUM 85 mg/dL (64-422); IMMUNOGLOBULIN G, QN, SERUM 1109 mg/dL (586-1602); IMMUNOGLOBULIN M, QN, SERUM 47 mg/dL (26-217); M-SPIKE Comment: g/dL (Not Observed); PROTEIN, TOTAL, SERUM 3.9 g/dL (6.0-8.5)
== END 2020-03-19 16:30 | DRG 841 ==
LOC: ER 16:22 → MEDS 16:23
PROVIDERS: Internal Medicine; Internal Medicine Endocrinology, Diabetes & Metabolism; Internal Medicine Hematology & Oncology; Physician Assistant; ADMIT Hospitalist
DX: C85.90 Non-Hodgkin lymphoma, unspecified, unspecified site (principal); E87.1 Hypo-osmolality and hyponatremia; E86.0 Dehydration; Z79.82 Long term (current) use of aspirin; Z90.13 Acquired absence of bilateral breasts and nipples; Z51.5 Encounter for palliative care; K21.9 Gastro-esophageal reflux disease without esophagitis; E78.5 Hyperlipidemia, unspecified; N18.3 Chronic kidney disease, stage 3 (moderate); G89.29 Other chronic pain; Z20.828 Contact with and (suspected) exposure to other viral communicable diseases; M79.7 Fibromyalgia; I12.9 Hypertensive chronic kidney disease with stage 1 through stage 4 chronic kidney disease, or unspecified chronic kidney disease; Z79.891 Long term (current) use of opiate analgesic; Z66 Do not resuscitate
CPT/HCPCS: 36415; 36430; 51701; 71260; 74176; 80048; 80053; 81001; 82272; 82550; 82553; 82607; 82728; 82746; 83540; 83550; 83615; 84165; 84484; 84550; 85014; 85018; 85025; 85045; 85060; 86160; 86225; 86235; 86850; 86900; 86901; 86923; 87077; 87086; 87186; 93005; 93010; 94760; 94762; 96360-59; 96361-59; 96374; 97110; 97112; 97162; 97530; 97530-CQ; 99285-25; A9270; A9270-GY; G0378; J1160; J2060; J2405; J7030; J7050; J7120; P9016; Q9967; U0002